=== PATIENT | male | born 1980 ===

== ENCOUNTER 2020-08-18 12:04 | Observation (INO) ==
[2020-08-18] MEDS ORDERED: NS 0.9% 1000 ml BAG 1,000 ML IV ONE (12:21)
[2020-08-18] MEDS ORDERED: Albuterol HFA INHALER 8 gm MDI INH ONE (13:09)
[2020-08-18 13:19] LABS: ABS Lymphocytes 0.9 10^3/ul (1.0-4.8); ABS Monocytes 0.5 10^3/ul (0-0.8); ABS Neutrophils 11.9 10^3/ul (1.5-7.7); Eosinophil % 0.3 %; Hematocrit 42 % (42-52); Hemoglobin 14.4 g/dL (14.0-18.0); Lymphocyte % 6.4 %; Mean Corpuscular HGB Conc 35 g/dL (31-36); Mean Corpuscular Hemoglobin 31 pg (27-31); Mean Corpuscular Volume 89 fL (80-94); Mean Platelet Volume 7.4 fL (7.4-10.4); Platelet Count 244 10^3/uL (150-450); Red Blood Count 4.69 10^6 /uL (4.18-5.48); Red Cell Distribution Width 12 % (10-15); White Blood Count 13.3 10^3/uL (3.5-10.8)
[2020-08-18 13:37] LABS: ALT 28 U/L (7-52); AST 24 U/L (13-39); Albumin 3.9 g/dL (3.2-5.2); Albumin/Globulin Ratio 1.5 (1-3); Alkaline Phosphatase 71 U/L (34-104); Anion Gap 9 mmol/L (2-11); BUN/Creatinine Ratio 10.3 (8-20); Blood Urea Nitrogen 8 mg/dL (6-24); C Reactive Protein 25.55 mg/L (<8.01); CO2 Carbon Dioxide 25 mmol/L (22-32); Calcium 8.8 mg/dL (8.6-10.3); Chloride 103 mmol/L (101-111); EGFR African American 134.8 (>60); EGFR Non-African American 111.4 (>60); Globulin 2.6 g/dL (2-4); Glucose 112 mg/dL (70-100); Lipase 18 U/L (11.0-82.0); Magnesium 1.5 mg/dL (1.9-2.7); Potassium 3.7 mmol/L (3.5-5.0); Sodium 137 mmol/L (135-145); Total Protein 6.5 g/dL (6.4-8.9)
[2020-08-18] MEDS ORDERED: Magnesium Sulf 4 GM/100 ML IV 4,000 MG/100 ML BAG IVPB ONE (13:45)
[2020-08-18] MEDS ORDERED: Piperacillin/Tazobac ADVAN 3.375 GM in NS 0.9% 100 ml BAG 100 ML IVPB ONE (13:49)
[2020-08-18] MEDS ORDERED: Vancomycin 1,250 MG in NS 0.9% 250 ml 250 ML IVPB ONE (14:00)
[2020-08-18] MEDS ORDERED: Iohexol 300 (CONTRAST) 10 ML SDV IV ONE (14:05)
[2020-08-18] MEDS ORDERED: Ondansetron 4 mg VIAL 2 MG/ML 2 ml VIAL ONE (15:02)
[2020-08-18] MEDS ORDERED: Ondansetron 4 mg VIAL 2 MG/ML 2 ml VIAL IV ONE (15:02)
[2020-08-18] MEDS ORDERED: Iohexol 350 (CONTRAST) 500 ML MDV IV ONE (16:51)
[2020-08-18 17:22] LABS: Urine Appearance Clear; Urine Bilirubin Negative (Negative); Urine Blood Negative (Negative); Urine Color Yellow; Urine Glucose Negative (Negative); Urine Ketones Trace (Negative); Urine Nitrite Negative (Negative); Urine Protein Negative (Negative); Urine Specific Gravity 1.011 (1.010-1.030); Urine Urobilinogen Negative (Negative)
[2020-08-18] MEDS ORDERED: Azithromycin 500 mg/250 ml NS 500 MG/250 ML BAG IVPB ONE (17:31)
[2020-08-18] MEDS ORDERED: cefTRIAXone 1 gm/50 mL NS BAG 1 GM/50 ML BAG IV ONE (17:31)
[2020-08-18 18:32] LABS: Influenza A Molecular Negative (Negative); Influenza B Molecular Negative (Negative)
[2020-08-18] MEDS ORDERED: Ondansetron 4 mg VIAL 2 MG/ML 2 ml VIAL IV PRN (18:35)
[2020-08-18 19:00] LABS: Creatine Kinase 39 U/L (10-223)
[2020-08-18 19:04] LABS: LDH 162 U/L (140-271); Rheumatoid Factor < 10 IU/mL (<15)
[2020-08-18 19:12] LABS: HIV 4th Generation Nonreactive (Nonreactive)
[2020-08-18] MEDS: Albuterol HFA INHALER 8 gm MDI INH SCH ×2 (20:50→22:54)
[2020-08-18] MEDS: NS 0.9% 1000 ml BAG 1,000 ML IV SCH (21:37)
[2020-08-19] MEDS: Albuterol HFA INHALER 8 gm MDI INH SCH ×3 (03:44→11:12)
[2020-08-19] MEDS: NS 0.9% 1000 ml BAG 1,000 ML IV SCH (05:30)
[2020-08-19 10:24] LABS: ABS Basophils 0.1 10^3/ul (0-0.2); ABS Eosinophils 0.2 10^3/ul (0-0.6); ABS Lymphocytes 1.4 10^3/ul (1.0-4.8); ABS Monocytes 0.6 10^3/ul (0-0.8); ABS Neutrophils 11.6 10^3/ul (1.5-7.7); Eosinophil % 1.4 %; Hematocrit 38 % (42-52); Hemoglobin 13.5 g/dL (14.0-18.0); Lymphocyte % 10.2 %; Mean Corpuscular HGB Conc 36 g/dL (31-36); Mean Corpuscular Hemoglobin 32 pg (27-31); Mean Corpuscular Volume 89 fL (80-94); Mean Platelet Volume 8.1 fL (7.4-10.4); Platelet Count 231 10^3/uL (150-450); Red Blood Count 4.25 10^6 /uL (4.18-5.48); Red Cell Distribution Width 13 % (10-15); White Blood Count 13.9 10^3/uL (3.5-10.8)
[2020-08-19 10:41] LABS: Calcium 8.1 mg/dL (8.6-10.3); EGFR Non-African American 116.6 (>60); Magnesium 1.9 mg/dL (1.9-2.7); Potassium 3.6 mmol/L (3.5-5.0)
[2020-08-19] MEDS ORDERED: Albuterol HFA INHALER 8 gm MDI INH PRN (11:17)
[2020-08-19 15:05] VITALS: BP 121/71
[2020-08-19 15:11] LABS: Erythrocyte Sed Rate 21 mm/Hr (0-14)
[2020-08-20 12:13] LABS: TB2 Ag minus Nil Result 0.01 IU/mL
[2020-08-20 12:19] LABS: QuantiferonTb Gold Plus Result Negative (Negative)
[2020-08-22 11:01] LABS: Albumin 2.8 g/dL (3.4-4.7); Albumin/Globulin Ratio 1.01; Gamma Globulin 0.8 g/dL (0.6-1.6); Total Protein(PEP) 5.6 g/dL (6.3 - 7.9)
[2020-08-22 15:04] LABS: Spotted Fever Group IgG Ab, S <1:64 (<1:64); Spotted Fever Group IgM Ab, S <1:64 (<1:64)
[2020-08-22 21:46] LABS: Aspergillus IgG Ab 15.3 mg/L (<=102)
[2020-08-22 22:55] LABS: Anaplasma phagocytophilum Negative (Negative); B. miyamotoi PCR, B Negative (Negative); Babesia divergens/MO-1 Negative (Negative); Babesia ducani Negative (Negative); Ehrlichia chaffeensis Negative (Negative); Ehrlichia ewingii/canis Negative (Negative); Ehrlichia muris eauclairensis Negative (Negative)
[2020-08-22 23:30] LABS: Aspergillus (Galactomannan) Ag <0.500 index (<0.5)
== END 2020-08-19 17:50 | disposition home or self-care (01) ==
LOC: MED 12:04 → ED 12:04 → MED 20:00
PROVIDERS: ADMIT Student in an Organized Health Care Education/Training Program; ATTEND Internal Medicine